=== PATIENT | female | born 1975 | race Hispanic/Latino ===

== ENCOUNTER 2024-04-30 01:15 | Emergency (ER) | payer SELFPAY ==
[2024-04-30] MEDS ORDERED: Ketorolac Tromethamine 30 MG (1 mL) VIAL ONE (01:25)
== END 2024-04-30 01:40 | disposition home or self-care (01) ==
LOC: CSHERS 01:15
DX: M25.562 Pain in left knee (principal); I10 Essential (primary) hypertension
CPT/HCPCS: 96372; 99283; J1885